=== PATIENT | male | born 1980 | race African-American/Black ===

== ENCOUNTER 2017-02-20 10:57 | Emergency (ER) | payer OTHER ==
[~2017-02-20] VITALS: Ht 182.9 cm; Wt 90.7 kg
--- NOTE | ~2017-02-20 | CR114 ---
[facility] A Service of [facility] & [facility] RADIOLOGY TEXT RESULTS PATIENT: HUMA RENNER LOCATION: CFTX : 80 UNIT #: [id number] AGE: [address]: Christine Ford APRN SEX: M ORDER DR: [id number] [facility] [address]. [place], [place] [address] [id number] MR#: [id number] Acc #: [id number] NAME: HUMA RENNER. : 1980 SEX: M STUDY DATE/TIME: 02/20/2017 11:50 UNIT: [facility] ROOM: STUDY DESCRIPTION: CR Finger 2 View 5Th Lt Attending Physician: Christine Ford A.P.R.N. Ordering Physician: Ed Niraj Nam M.D. Primary Care Physician: Charito Marshall A.P.R.N. MEDICAL IMAGING REPORT This report is preliminary unless electronic signature is present EXAM Left fifth digit INDICATIONS Trauma. Fall. TECHNIQUE/COMPARISON 3 views of the left fifth digit without comparison. FINDINGS There is no acute fracture or dislocation. Alignment is anatomic. There is a metallic foreign body overlying the dorsum of the distal fifth metacarpal. IMPRESSION 1. No acute fracture. 2. Small metallic foreign body in the dorsal soft tissues overlying the fifth metacarpal head is age indeterminate. Dictated by... Reginald Montana M.D. THIS IS AN ELECTRONICALLY VERIFIED REPORT Reginald Montana M.D. at 02/23/2017 11:42 AM Keli/brigette TD: 02/22/2017 18:46 JOB #: [id number] MEDICAL IMAGING REPORT Page 1 of 1 COPY
== END 2017-02-20 13:25 | disposition home or self-care (01) ==
LOC: CED 10:57 → CFTX 10:57
DX: S66.317A Strain of extensor muscle, fascia and tendon of left little finger at wrist and hand level, initial encounter (principal); J45.909 Unspecified asthma, uncomplicated; W17.89XA Other fall from one level to another, initial encounter; Y92.009 Unspecified place in unspecified non-institutional (private) residence as the place of occurrence of the external cause
CPT/HCPCS: 29130; 73140; 99283